=== PATIENT | female | born 1940 | race Hispanic/Latino ===

== ENCOUNTER 2016-08-12 16:38 | Outpatient (CLI) | payer MEDICARE ==
[2016-08-12 17:09] LABS: Basophils % (Auto) 1.2 % (0.0-1.8); Eosinophils % (Auto) 9.1 % (0.0-4.3); Hematocrit 32.5 % (30.3-42.9); Hemoglobin 10.6 gm/dl (10.1-14.3); Mean Corpuscular HGB Conc 32 % (30-34); Mean Corpuscular Hemoglobin 31 pg (28-32); Mean Corpuscular Volume 95 fl (79-97); Platelet Count 185 K/mm3 (140-440); Red Blood Count 3.41 M/mm3 (3.65-5.03); Red Cell Distribution Width 15.4 % (13.2-15.2); White Blood Count 6.8 K/mm3 (4.5-11.0)
[2016-08-12 17:13] LABS: Bilirubin,Urine NEG (Negative); Blood,Urine NEG (Negative); Ketones,Urine NEG (Negative); Leukocyte Esterase,Urine SM (Negative); Nitrite,Urine NEG (Negative); Protein,Urine <15 mg/dL mg/dL (Negative); RBC,Urine < 1.0 /HPF (0.0-6.0); Urobilinogen,Urine < 2.0 mg/dL (<2.0)
[2016-08-12 17:18] LABS: Albumin 3.9 g/dL (3.9-5); Albumin/Globulin Ratio 1.4 %; BUN/Creatinine Ratio 40.9; Bilirubin,Total 0.2 mg/dL (0.1-1.2); Calcium 8.9 mg/dL (8.4-10.2); Chloride 98.3 mmol/L (98-107); Potassium 5.2 mmol/L (3.6-5.0); Total Protein 6.7 g/dL (6.3-8.2)
== END 2016-08-12 16:39 | disposition home or self-care (01) ==
LOC: LABHHL 16:38
DX: N18.3 Chronic kidney disease, stage 3 (moderate) (principal); C90.01 Multiple myeloma in remission; K55.1 Chronic vascular disorders of intestine; L89.154 Pressure ulcer of sacral region, stage 4
CPT/HCPCS: 36415; 80053; 81001; 85025; 87086